=== PATIENT | female | born 1940 | race Asian ===

== ENCOUNTER → 2018-02-28 | Outpatient (CLI) | payer MEDICARE, OTHER ==
[~2018-02-28] MED LIST: ALEN70TA69 PO; ASCO100T12 PO; BUDE10.2 IH; CALC500T62 PO; ERGO400C PO; FEXO30TA PO; METF-444 PO; MULT-1259 PO; SIMV40TA5 PO
== END | disposition home or self-care (01) ==
LOC: RADPV 10:50
PROVIDERS: ATTEND Internal Medicine
DX: I31.3 Pericardial effusion (noninflammatory) (principal); I07.8 Other rheumatic tricuspid valve diseases; R91.8 Other nonspecific abnormal finding of lung field
CPT/HCPCS: 71046; 93306